=== PATIENT | female | born 1950 | race Caucasian/White ===

== ENCOUNTER → 2021-04-27 08:50 | Outpatient (CLI) | payer MEDICARE, SELFPAY ==
--- NOTE | 2021-04-27 09:20 | CT_ITS ---
PROCEDURE: CT LUNG SCREENING CLINICAL INDICATION: H/O NICOTINE DEPENDENCE COMPARISON: No exams were available for comparison TECHNIQUE: The exam was performed on a GE Light Speed [address] scanner using 2.90 mGy CTDI. A low dose helical CT CHEST was performed on a multi-detector scanner. All CT scans at the facility use one or more dose reduction, viz: automated exposure control, ma/kV adjustment per patient size (including targeted exams where dose is matched to indication, i.e. head), or iterative reconstruction technique. The LDCT was performed in a facility that meets the criteria for the screening program. Data regarding this exam was submitted to ACR which is an approved registry. The order for this exam indicates that it came as a result of a lung cancer screening counseling shard decision-making visit that included all the elements required of such a visit including smoking cessation. The radiologist interpreting this exam meets the CMS criteria for the LDCT lung cancer screening program. The exam is reported using the Lung-RADS classification scale and reported to the ACR registry. NOTE: This study was performed for the specific purposes of lung cancer screening and is not an alternative to diagnostic chest CT. RADIATION DOSE: CTDI vol(CT dose Index-volume) = 2.90mG DLP (Dose Length Product) = 96.38 mGcm FINDINGS: COPD changes with mild centrilobular emphysema and coarsening of bronchovascular markings. 3 mm noncalcified nodule right upper lobe 4/34. There are scattered areas of scarring. Calcified granuloma right midlung laterally. Spiculated noncalcified 11 by espitia mm nodule left upper lobe anteriorly in the apical posterior segment just anterior to the apical segmental bronchus.. There are some linear septations extending from this nodule. Nodular opacity is present in the lingula medially anterior to the heart. This measures 8 mm and may be due to an area of scarring. OTHER FINDINGS: Mildly prominent thyroid gland on both sides. There is a mildly prominent precarinal lymph node at 13x 9 mm. Coronary artery calcifications are present. Calcified nodes are present in the right hilum. IMPRESSION: Lung-RADS Category 4A Suspicious Follow-up: Suggest PET-CT for further evaluation. Dictated by: Kaiser Holguin MD 04/28/2021 05:03 Kaiser Holguin MD in [place] 04/28/2021 05:03
--- NOTE | 2021-04-27 09:20 | XR_ITS ---
PROCEDURE: XR DEXA AXIAL SKELETON CLINICAL HISTORY: POST MENOPAUSAL COMPARISON: No exams were available for comparison FINDINGS: The right hip BMD is 0.570 with a T-score of -2.5. The left hip BMD is 0.564 with a T-score of -2.6. The lumbar spine BMD is 0.808 with a T-score of -2.2. IMPRESSION: This patient is considered osteoporotic according to the World Health Organization criteria. Fracture risk is high. Treatment is advised. Based on these results a follow-up exam is recommended in 1 year. Dictated by: Kaiser Holguin MD 04/27/2021 12:14 Kaiser Holguin MD in [facility] 04/27/2021 12:14
== END ==
PROVIDERS: PCP Internal Medicine Adolescent Medicine; Visit Provider Internal Medicine Adolescent Medicine
DX: Z87.891 Personal history of nicotine dependence (principal); Z12.2 Encounter for screening for malignant neoplasm of respiratory organs; Z13.820 Encounter for screening for osteoporosis; Z78.0 Asymptomatic menopausal state
CPT/HCPCS: 71271; 77080

== ENCOUNTER → 2021-10-16 09:11 | Outpatient (CLI) | payer MEDICARE, SELFPAY ==
[2021-10-16 10:16] LABS: Basophils # 0.1 K/mm3 (0-0.2); Basophils % 1.3 % (0.1-2.0); Eosinophils # 0.3 K/mm3 (0.0-0.4); Eosinophils % 2.9 % (0.1-12.0); Hematocrit 49.6 % (37.0-47.0); Hemoglobin 16.1 g/dL (12.2-16.2); Lymphocytes % 33.4 % (10-50); Mean Corpuscular HGB Conc 32.4 g/dL (31.8-35.4); Mean Corpuscular Hemoglobin 31.7 pg (27.0-31.2); Mean Corpuscular Volume 97.6 fl (81-99); Mean Platelet Volume 7.9 fl (7.4-10.4); Monocytes # 0.5 K/mm3 (0.1-1.0); Neutrophils # 5.2 K/mm3 (1.8-7.8); Neutrophils % 57.4 % (37.0-80.0); Platelet Count 360 K/mm3 (142-424); Red Blood Count 5.09 M/mm3 (4.20-5.40); Red Cell Distribution Width 13.8 % (11.5-17.5)
[2021-10-16 11:21] LABS: Alanine Aminotransferase 7 U/L (12-78); Albumin Level 4.4 g/dl (3.5-5.0); Albumin/Globulin Ratio 1.8 (1.1-1.8); Alkaline Phosphatase 86 U/L (38-126); Anion Gap 12.6 mEq/L (5-15); Aspartate Amino Transferase 21 U/L (14-36); Bilirubin,Total 0.7 mg/dl (0.2-1.3); Blood Urea Nitrogen 25 mg/dl (7-17); Calcium 9.4 mg/dl (8.4-10.2); Carbon Dioxide 29 mmol/L (22.0-30.0); Chloride 98 mmol/L (98-107); Chol/HDL Ratio 3.7 (1-3.5); Cholesterol 227 mg/dl (140-200); Estimated Glomerular Filt Rate 83 ml/min (>60); GFR (African American) 100 ML/MIN (>60); Globulin 2.4 g/dL (1.3-3.2); Glucose 122 mg/dl (74-100); HDL Cholesterol 61 mg/dl (40-60); Potassium 4.6 mmoL/L (3.5-5.1); Sodium 135 mmol/L (136-145); Total Protein,Serum 6.8 g/dl (6.3-8.2); Triglycerides 119 mg/dl (30-150); VLDL Cholesterol 24 mg/dL (0-40)
[2021-10-16 11:33] LABS: Direct LDL Cholesterol 135.85 mg/dL (100-129)
== END ==
PROVIDERS: PCP Internal Medicine Adolescent Medicine; Visit Provider Internal Medicine Adolescent Medicine
DX: Z00.00 Encounter for general adult medical examination without abnormal findings (principal); M47.816 Spondylosis without myelopathy or radiculopathy, lumbar region; I10 Essential (primary) hypertension; Z79.899 Other long term (current) drug therapy
CPT/HCPCS: 36415; 80053; 80061; 83036; 85025

== ENCOUNTER → 2022-04-02 10:37 | Outpatient (CLI) | payer MEDICARE, MEDICAID, SELFPAY ==
[2022-04-02 11:52] LABS: Basophils # 0.1 K/mm3 (0-0.2); Basophils % 1.6 % (0.1-2.0); Eosinophils # 0.2 K/mm3 (0.0-0.4); Eosinophils % 2.8 % (0.1-12.0); Hematocrit 46.5 % (37.0-47.0); Hemoglobin 15.2 g/dL (12.2-16.2); Lymphocytes # 2.4 K/mm3 (0.7-4.5); Lymphocytes % 33.1 % (10-50); Mean Corpuscular HGB Conc 32.8 g/dL (31.8-35.4); Mean Corpuscular Hemoglobin 31.4 pg (27.0-31.2); Mean Corpuscular Volume 95.7 fl (81-99); Mean Platelet Volume 7.9 fl (7.4-10.4); Monocytes # 0.5 K/mm3 (0.1-1.0); Monocytes % 6.8 % (1.7-9.3); Neutrophils % 55.7 % (37.0-80.0); Platelet Count 298 K/mm3 (142-424); Red Blood Count 4.86 M/mm3 (4.20-5.40); Red Cell Distribution Width 13.7 % (11.5-17.5); White Blood Count 7.2 K/mm3 (4.8-10.8)
[2022-04-02 13:27] LABS: Alanine Aminotransferase 10 U/L (12-78); Albumin Level 3.9 g/dl (3.5-5.0); Albumin/Globulin Ratio 1.6 (1.1-1.8); Alkaline Phosphatase 115 U/L (38-126); Aspartate Amino Transferase 25 U/L (14-36); Bilirubin,Total 0.3 mg/dl (0.2-1.3); Blood Urea Nitrogen 17 mg/dl (7-17); Calcium 9.2 mg/dl (8.4-10.2); Carbon Dioxide 32 mmol/L (22.0-30.0); Chloride 101 mmol/L (98-107); Chol/HDL Ratio 3.6 (1-3.5); Cholesterol 214 mg/dl (140-200); Estimated Glomerular Filt Rate 122 ml/min (>60); GFR (African American) 147 ML/MIN (>60); Globulin 2.5 g/dL (1.3-3.2); Glucose 120 mg/dl (74-100); HDL Cholesterol 59 mg/dl (40-60); Sodium 136 mmol/L (136-145); Total Protein,Serum 6.4 g/dl (6.3-8.2); Triglycerides 130 mg/dl (30-150); VLDL Cholesterol 26 mg/dL (0-40)
== END ==
PROVIDERS: PCP Internal Medicine Adolescent Medicine; Visit Provider Internal Medicine Adolescent Medicine
DX: E78.5 Hyperlipidemia, unspecified (principal); I10 Essential (primary) hypertension; R91.8 Other nonspecific abnormal finding of lung field
CPT/HCPCS: 36415; 80053; 80061; 85025

== ENCOUNTER → 2022-12-01 07:28 | Outpatient (CLI) | payer MEDICARE, MEDICAID, SELFPAY ==
[2022-12-01 07:40] LABS: Microscopic, Urine URINE MICROSCOPIC (MICROSCOPIC)
[2022-12-01 07:59] LABS: Basophils # 0.1 K/mm3 (0-0.2); Basophils % 1.5 % (0.1-2.0); Eosinophils # 0.3 K/mm3 (0.0-0.4); Eosinophils % 3.5 % (0.1-12.0); Hematocrit 50.3 % (37.0-47.0); Hemoglobin 16.1 g/dL (12.2-16.2); Lymphocytes # 3.2 K/mm3 (0.7-4.5); Lymphocytes % 37.7 % (10-50); Mean Corpuscular Hemoglobin 30.3 pg (27.0-31.2); Mean Corpuscular Volume 94.7 fl (81-99); Mean Platelet Volume 7.5 fl (7.4-10.4); Monocytes # 0.5 K/mm3 (0.1-1.0); Monocytes % 5.5 % (1.7-9.3); Neutrophils # 4.4 K/mm3 (1.8-7.8); Neutrophils % 51.8 % (37.0-80.0); Platelet Count 309 K/mm3 (142-424); Red Blood Count 5.32 M/mm3 (4.20-5.40); Red Cell Distribution Width 13.6 % (11.5-17.5); White Blood Count 8.5 K/mm3 (4.8-10.8)
[2022-12-01 08:00] LABS: Appearance,Urine CLEAR (Clear); Bilirubin,Urine Negative (Negative); Blood, Urine TRACE-I (Negative); Color,Urine YELLOW (Yellow); Glucose,Urine (UA) Negative (Negative); Ketones,Urine Negative (Negative); Leukocyte Esterase,Urine Negative (Negative); Nitrate,Urine Negative (Negative); PH,Urine 5.5 (5.0-8.5); Protein,Urine Negative (Negative); Urobilinogen,Urine 0.2 EU/dl (0.2)
[2022-12-01 08:17] LABS: Amphetamine/Metha Screen,Urine Negative ng/ml (<1000); Barbiturates Screen,Urine Negative ng/ml (<200); Benzodiazepines Screen,Urine Negative ng/ml (<200); Cannabinoid Screen,Urine Negative ng/ml (<50); Cocaine Screen,Urine Negative ng/ml (<300); Methadone Screen,Urine Negative ng/ml (<300); Opiate Screen,Urine Positive ng/ml (<300); Phencyclidine Screen,Urine Negative ng/ml (<25)
[2022-12-01 08:33] LABS: Bacteria,Urine Trace /lpf
[2022-12-01 09:48] LABS: Alanine Aminotransferase 8 U/L (12-78); Albumin Level 4.3 g/dl (3.5-5.0); Albumin/Globulin Ratio 1.8 (1.1-1.8); Alkaline Phosphatase 89 U/L (38-126); Anion Gap 8.1 mEq/L (5-15); Aspartate Amino Transferase 22 U/L (14-36); Bilirubin,Total 0.8 mg/dl (0.2-1.3); Blood Urea Nitrogen 23 mg/dl (7-17); Calcium 9.3 mg/dl (8.4-10.2); Carbon Dioxide 35 mmol/L (22.0-30.0); Chloride 95 mmol/L (98-107); Chol/HDL Ratio 3.6 (1-3.5); Cholesterol 235 mg/dl (140-200); Estimated Glomerular Filt Rate 98 ml/min (>60); GFR (African American) 119 ML/MIN (>60); Globulin 2.4 g/dL (1.3-3.2); Glucose 115 mg/dl (74-100); HDL Cholesterol 66 mg/dl (40-60); Potassium 4.1 mmoL/L (3.5-5.1); Sodium 134 mmol/L (136-145); Total Protein,Serum 6.7 g/dl (6.3-8.2); Triglycerides 179 mg/dl (30-150); VLDL Cholesterol 36 mg/dL (0-40)
[2022-12-01 09:59] LABS: Direct LDL Cholesterol 118.91 mg/dL (100-129)
[2022-12-01 21:03] LABS: Hemoglobin A1C 5.8 % (4.0-6.0)
== END ==
PROVIDERS: PCP Internal Medicine Adolescent Medicine; Visit Provider Internal Medicine Adolescent Medicine
DX: E78.5 Hyperlipidemia, unspecified (principal); Z86.39 Personal history of other endocrine, nutritional and metabolic disease; G89.4 Chronic pain syndrome
CPT/HCPCS: 36415; 80053; 80061; 80305; 81001; 83036; 85025

== ENCOUNTER 2023-11-29 09:46 | Day surgery (SDC) | payer MEDICARE, MEDICAID, SELFPAY ==
[2023-11-29] VITALS (7 sets, daily range): BP systolic 105–148; BP diastolic 60–70; PULSE 57–73; RESP 16–19; TEMP 36.2–36.6; O2SAT 94–99; BMI 33.5
[2023-11-29] MEDS: TETRACAINE 0.5% OPTH SOL 15ML OP ×3 (10:00→10:10)
[2023-11-29] MEDS: PHENYLEPHRINE 2.5% OPHTH SOLN 2ML 0.0500000000000000028 ML OP ×3 (10:00→10:10)
[2023-11-29] MEDS: CYCLOPENTOLATE 2% OPHTH SOLN 2ML BOTTLE OP ×3 (10:00→10:10)
[2023-11-29] MEDS: SODIUM CHLORIDE 0.9% 10ML FLUSH SYRINGE 10 ML IV ×2 (10:10→10:52)
[2023-11-29] MEDS: MIDAZOLAM 2MG/2ML VIAL 1 MG IV (10:44)
[2023-11-29] MEDS: LIDOCAINE 1% PF 2ML AMPULE 2 ML IJ (10:52)
[2023-11-29] MEDS: TOBRAMYCIN/DEX OPTH SUSP 2.5ML OP (10:53)
[2023-11-29] MEDS: TIMOLOL 0.5% OPTH SOLN 5ML OP (10:53)
== END 2023-11-29 11:18 | disposition home or self-care (01) ==
PROVIDERS: PCP Internal Medicine Adolescent Medicine; Visit Provider Ophthalmology
PROC: (CPT 66984; principal; 2023-11-29 12:30)
DX: H25.812 Combined forms of age-related cataract, left eye (principal); H53.8 Other visual disturbances; H02.834 Dermatochalasis of left upper eyelid
CPT/HCPCS: 66984; V2632

== ENCOUNTER 2023-12-13 07:55 | Day surgery (SDC) | payer MEDICARE, MEDICAID, SELFPAY ==
[2023-12-09 10:08] VITALS: BMI 31.5
[2023-12-13] MEDS: CYCLOPENTOLATE 2% OPHTH SOLN 2ML BOTTLE OP ×3 (08:53→09:02)
[2023-12-13 08:55] VITALS: BP 130/60; PULSE 61; RESP 18; O2SAT 93
[2023-12-13] MEDS: TETRACAINE 0.5% OPTH SOL 15ML OP ×3 (08:55→09:01)
[2023-12-13] MEDS: PHENYLEPHRINE 2.5% OPHTH SOLN 2ML 0.0500000000000000028 ML OP ×3 (08:57→09:03)
[2023-12-13] MEDS: SODIUM CHLORIDE 0.9% 10ML FLUSH SYRINGE 10 ML IV ×2 (09:04→10:20)
[2023-12-13 10:12] VITALS: BP 129/62; PULSE 57; RESP 18; TEMP 36.6; O2SAT 95
[2023-12-13] MEDS: MIDAZOLAM 2MG/2ML VIAL 1 MG IV (10:12)
[2023-12-13 10:17] VITALS: BP 112/54; PULSE 61; RESP 18; TEMP 36.6; O2SAT 92
[2023-12-13] MEDS: TOBRAMYCIN/DEX OPTH SUSP 2.5ML OP (10:20)
[2023-12-13] MEDS: LIDOCAINE 1% PF 2ML AMPULE 2 ML IJ (10:20)
[2023-12-13] MEDS: TIMOLOL 0.5% OPTH SOLN 5ML OP (10:20)
[2023-12-13 10:22] VITALS: BP 118/63; PULSE 65; RESP 18; TEMP 36.6; O2SAT 94
--- NOTE | 2023-12-13 10:31 | P.PCN_ITS ---
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 The patient reports that this interferes with ADLs such as reading, watching TV and/or driving or the vision is like looking through a foggy haze and is very troubling. The patient was examined and found to have a visually significant cataract with best corrected vision of 20/400 by refraction and/or glare testing. Treatment options, risks and benefits were explained and the patient elected to have cataract surgery in an attempt to improve their vision. The patient had the eye anesthetized with topical tetracaine, the eye ways prepped and draped in the usual fashion for cataract surgery. A paracentesis and a temporal keratotomy were made. 0.2cc of 1% lidocaine PF was placed into the anterior chamber. And aqueous/viscoelastic exchange was done and a 360 degree capsulorexis was performed. Through hydrodissection and delineation with BSS on a cannula was done. The lens nucleus was phecoemulsified with CDE of 8.08. Residual cortical material was removed using automated I&A The capsular bag was deepened with viscoelastica and a PCIOL was placed in the capsular bag with good centration and stability. Residual viscoelastic was removed using automated I&A. The keratotomy incision was hydrated with BSS on a cannula. The wound were checked and found to be water tight. IOP was checked digitally and adjusted as needed so as not to be too high. 1 drop of timolol 0.5%, ofloxacin, prednisolone acetate and ketorolac was instilled and eye shield taped over the eye. The patient was taken to recovery in good condition and will be seen postoperatively.
[2023-12-13 10:45] VITALS: BP 119/73; PULSE 63; RESP 18; TEMP 36.9; O2SAT 93
--- NOTE | 2023-12-13 10:57 | P.PCN_ITS ---
[facility] Procedure Note Date: 12/13/23 Time: 10:57 Procedure Note:: Preoperative Diagnosis: Cataract combined NS Cortical Complex left Eye Postop diagnosis: same Operation: Microscopic phacoemulsification with intraocular lens implant left Eye Specimen: None Blood Loss: None The patient was examined in the office with a complaint of poor vision in the left eye. The patient reports that this interferes with ADLs such as reading, watching TV and/or driving or the vision is like looking through a foggy haze and is very troubling. The patient was examined and found to have a visually significant cataract with best corrected vision of 20/400 by refraction and/or glare testing. Treatment options, risks and benefits were explained and the patient elected to have cataract surgery in an attempt to improve their vision. The patient had the eye anesthetized with topical tetracaine, the eye ways prepped and draped in the usual fashion for cataract surgery. A paracentesis and a temporal keratotomy were made. 0.2cc of 1% lidocaine PF was placed into the anterior chamber. And aqueous/viscoelastic exchange was done and a 360 degree capsulorexis was performed. Through hydrodissection and delineation with BSS on a cannula was done. The lens nucleus was phecoemulsified with CDE of 10.2. Residual cortical material was removed using automated I&A The capsular bag was deepened with viscoelastica and a PCIOL was placed in the capsular bag with good centration and stability. Residual viscoelastic was removed using automated I&A. The keratotomy incision was hydrated with BSS on a cannula. The wound were checked and found to be water tight. IOP was checked digitally and adjusted as needed so as not to be too high. 1 drop of timolol 0.5%, ofloxacin, prednisolone acetate and ketorolac was instilled and eye shield taped over the eye. The patient was taken to recovery in good condition and will be seen postoperatively.
--- NOTE | 2023-12-13 11:54 | [facility].PROCNOTE ---
[facility] Procedure Note Date: 12/13/23 Time: 11:54 Procedure Note:: Preoperative Diagnosis: Cataract combined NS Cortical Complex right Eye Postop diagnosis: same Operation: Microscopic phacoemulsification with intraocular lens implant right Eye Specimen: None Blood Loss: None The patient was examined in the office with a complaint of poor vision in the right eye. The patient reports that this interferes with ADLs such as reading, watching TV and/or driving or the vision is like looking through a foggy haze and is very troubling. The patient was examined and found to have a visually significant cataract with best corrected vision of 20/400 by refraction and/or glare testing. Treatment options, risks and benefits were explained and the patient elected to have cataract surgery in an attempt to improve their vision. The patient had the eye anesthetized with topical tetracaine, the eye ways prepped and draped in the usual fashion for cataract surgery. A paracentesis and a temporal keratotomy were made. 0.2cc of 1% lidocaine PF was placed into the anterior chamber. And aqueous/viscoelastic exchange was done and a 360 degree capsulorexis was performed. Through hydrodissection and delineation with BSS on a cannula was done. The lens nucleus was phecoemulsified with CDE of 8.96. Capsule rupture occured during quadrant removal. The chamber was deepened with viscoelastic, the keratotomy opened and a lens loop was used to remove the remaining quadrant of cataract. Anterior vitrectomy was done and remaining cortical material was aspirated out with the vitrector. A sulcus PCIOL was placed in the eye with good centration andd stability. Residual viscoelastic was removed using ther vitrectomy unit. The keratotomy incision was closed with interupted 210-0 sutures, the knot of which were buried. The wound were checked and found to be water tight. IOP was checked digitally and adjusted as needed so as not to be too high. 1 drop of timolol 0.5% and tobradex was instilled and eye shield taped over the eye. The patient was taken to recovery in good condition and will be seen postoperatively.
== END 2023-12-13 10:38 | disposition home or self-care (01) ==
LOC: OR 07:56
PROVIDERS: PCP Internal Medicine Adolescent Medicine; Visit Provider Ophthalmology
DX: H25.811 Combined forms of age-related cataract, right eye (principal); H53.8 Other visual disturbances; H02.831 Dermatochalasis of right upper eyelid
CPT/HCPCS: 66982; V2632

== ENCOUNTER 2024-04-08 21:20 | Emergency (ER) | payer MEDICARE, MEDICAID, SELFPAY ==
[2024-04-08 21:22] VITALS: BP 175/95; PULSE 77; RESP 16; TEMP 36.8; O2SAT 93; BMI 33.9
--- NOTE | 2024-04-08 21:24 | ED_ITS ---
<Statement entered by Misael Diego MD - 04/09/24 00:13> I was consulted by the ELÍAS, and we discussed the complexity of the problems being addressed. I approved the treatment and management plan for this patient's care in the emergency department, thus performing a substantive portion of the medical decision making. Misael Digeo MD Discharge Plan Disposition Patient Disposition: Left Against Medical Advice Chief Complaint: Fall Prescriptions Prescriptions: No Action propranolol 10 mg tablet 10 mg PO BID hydrocodone-acetaminophen 10-325 mg tablet 1 tab PO QID losartan-hydrochlorothiazide 100-25 mg tablet 1 tab PO DAILY Referrals Follow up/Referrals: García Castrejon MD [Primary Care Provider] - See instructions Clinical Impressions Clinical Impression: Injury of foot, right Print Language Print Language: Kazakh Discharge ED Provider: Misael Diego General Adult HPI General Chief complaint: Fall Stated complaint: AO 04-08-24 1300 fell in tub hurt right foot Time Seen by Provider: 04/08/24 21:24 History of Present Illness HPI narrative: Patient presents for evaluation of a right foot injury. Patient accidentally slipped while taking a shower injuring her right foot. Patient denies loss of consciousness, pain anywhere else, and is able to bear weight on the right foot but it is painful. Patient denies neck pain back pain leg pain. Related Data Home Medications ?Medication ?Instructions ?Recorded ?Confirmed propranolol 10 mg tablet 10 mg PO BID 10/26/19 12/13/23 hydrocodone 10 mg-acetaminophen 1 tab PO QID 11/29/23 12/13/23 325 mg tablet losartan 100 1 tab PO DAILY 11/29/23 12/13/23 mg-hydrochlorothiazide 25 mg tablet Allergies Allergy/AdvReac Type Severity Reaction Status Date / Time Penicillins Allergy Verified 12/13/23 08:53 [facility] Disclaimer: The information contained in this section may have been updated after the patient was seen, as this information can be updated by other users. Medical History (Updated 04/08/24 @ 23:23 by TITA De Jesus) Chronic pain Hypertension Surgical History H/O tubal ligation Family History Other No significant family history Social History Smoking Status: Current every day smoker alcohol intake: never current occupational status: employed Travel in the last 8 weeks: None ROS Obtained: Yes Systems reviewed as appropriate & no additional complaints except as documented Physical Exam General General appearance: alert and in no apparent distress Head Head exam: atraumatic and normal inspection Eye Eye exam: Present normal appearance and EOMI Neck Neck exam: Present normal inspection and full ROM; Absent tenderness Chest Chest inspection: Present normal inspection and symmetric chest wall rise; Absent tenderness Respiratory Respiratory exam: Present normal lung sounds bilaterally Cardiovascular Cardiovascular exam: Present regular rate and normal rhythm Abdominal Exam Abdominal exam: Present soft and normal bowel sounds; Absent tenderness Expanded Lower Extremity Exam Right: Top foot image: 2 1. Ecchymosis and tenderness 2. Tenderness no bony deformity ecchymosis edema Neurological Exam Neurological exam: Present alert and oriented X3 Medical Decision Making Medical Records Medical records reviewed: Yes I reviewed the patient's medical records. Sánchez Inquiry Pt receiving controlled substance: No Vital Signs: 04/08/24 21:22 04/08/24 22:00 Temperature 98.2 F Temperature Source Oral Pulse Rate 65 Pulse Rate [Right] 77 Respiratory Rate 16 Blood Pressure 147/81 H Blood Pressure [Right Arm] 175/95 H Blood Pressure Mean 113 Blood Pressure Mean [Right Arm] 121 Blood Pressure Source [Right Arm] Automatic Cuff Blood Pressure Position [Right Arm] Sitting 02 Sat by Pulse Oximetry 93 L 93 L Oxygen Delivery Method Room Air Lab Data Lab results reviewed: Yes I reviewed the patient's lab results. Orders (Tests/Meds): ED MEDICATIONS Discontinued Medications Generic Name Dose Route Start Last Admin Trade Name Teo PRN Reason Stop Dose Admin Acetaminophen 1,000 mg 04/08/24 21:32 04/08/24 21:41 Acetaminophen 500mg Tab PO 04/08/24 21:33 Not Given ONCE ONE Ibuprofen 800 mg 04/08/24 21:32 04/08/24 21:41 Ibuprofen 400 Mg Tablet PO 04/08/24 21:33 Not Given ONCE ONE ORDERS Category Date Time Status Ankle XR -Right minimum 3 Views [XR ankle RT min 3V] Exams 04/08/24 21:31 Taken Stat Foot XR right 2 views [XR foot RT 2V] Stat Exams 04/08/24 21:31 Taken Medical Decision Narrative: In summary patient is a 73-year-old female who presents to the emergency department for evaluation of right foot injury. Patient is hemodynamically stable upon arrival, afebrile. Physical exam is remarkable for ecchymosis at the right fifth toe but no bony deformity noted. Patient is tender on the outer edge of the right foot along the fifth metacarpal but again no bony deformity. Differential diagnosis includes contusion versus sprain versus fracture etc. Initial workup will be conducted with plain film x-rays. Initial interventions offered to the patient include Tylenol and Motrin however patient took a controlled substance use prescribed at home prior to coming to the ER. Initial workup reviewed by me my informal interpretation prior to radiology read shows no acute fracture however prior to radiology read patient had to leave AGAINST MEDICAL ADVICE due to needing a ride.. Critical Care Critical Care Time Critical Care Time: No
--- NOTE | 2024-04-08 21:31 | XR_ITS ---
PROCEDURE INFORMATION: Exam: XR Right Ankle Exam date and time: 04/08/2024 9:41 PM Age: 73 years old Clinical indication: Injury or trauma; Fall; Other: Pain TECHNIQUE: Imaging protocol: Radiologic exam of the right ankle. Views: 3 or more views. COMPARISON: CR XR ANKLE RT MIN 3V 04/08/2024 9:41 PM FINDINGS: Bones/joints: There are old healed fractures of the distal tibial and fibular shafts. The ankle mortise is intact and normally aligned. There is irregularity of the central to medial talar dome which may be related to degenerative change or trauma. Soft tissues: Diffuse soft tissue swelling. IMPRESSION: 1. Irregularity of the central to medial talar dome may be degenerative in nature or represent fracture. Further evaluation with CT can be performed as clinically indicated. 2. Diffuse soft tissue swelling. 3. Old fractures of the distal tibial and fibular shafts.
--- NOTE | 2024-04-08 21:31 | XR_ITS ---
PROCEDURE INFORMATION: Exam: XR Right Foot Exam date and time: 04/08/2024 9:41 PM Age: 73 years old Clinical indication: Injury or trauma; Fall; Other: Pain TECHNIQUE: Imaging protocol: Radiologic exam of the right foot. Views: 1 or 2 views. COMPARISON: CR XR ANKLE RT MIN 3V 04/08/2024 9:41 PM FINDINGS: Bones/joints: No acute fracture is evident. Fracture involving the 2nd and 4th middle phalanges cannot be excluded due to obliquity on the AP view and overlap on the lateral view. Alignment is normal. Soft tissues: Soft tissue swelling of the forefoot. IMPRESSION: 1. Soft tissue swelling of the forefoot. 2. No acute fracture is evident although a fracture of the 2nd and 4th middle phalanges cannot be excluded due to positioning.
--- NOTE | 2024-04-08 21:44 | PC.NURSE ---
Pt. refused Tylenol and Ibuprofen
[2024-04-08 22:00] VITALS: BP 147/81; PULSE 65; O2SAT 93
--- NOTE | 2024-04-08 22:25 | PC.NURSE ---
rounded on patient, patient waiting on imaging reports
--- NOTE | 2024-04-08 23:03 | PC.NURSE ---
assisted pt to the restroom at this time.
[2024-04-08 23:22] VITALS: BP 142/75; PULSE 85; RESP 14; TEMP 36.7; O2SAT 98
== END 2024-04-08 23:25 | disposition left against medical advice (07) ==
PROVIDERS: Emergency Provider Emergency Medicine; PCP Internal Medicine Adolescent Medicine
DX: S99.921A Unspecified injury of right foot, initial encounter (principal); W18.2XXA Fall in (into) shower or empty bathtub, initial encounter
CPT/HCPCS: 73610; 73620; 99283